=== PATIENT | male | born 1935 | race African-American/Black ===

== ENCOUNTER 2017-05-20 13:44 | Inpatient (IN) | payer MEDICARE ==
[~2017-05-20] VITALS: Ht 172.7 cm; Wt 82.1 kg
[2017-05-20] MEDS ORDERED: SODIUM CHLORIDE 0.9% 500 ML IV ONE (14:32)
[2017-05-20 15:45] LABS: BASOPHILS % 0.3 % (0.0-2.0); EOSINOPHILS % 0.9 % (0.0-5.0); LYMPHOCYTES % 23.1 % (20.0-50.0); MEAN CORPUSCULAR HEMOGLOBIN 27.8 pg (28.0-32.0); MEAN CORPUSCULAR VOLUME 83.5 fL (80.0-94.0); MEAN PLATELET VOLUME 9.4 fl (7.4-10.4); MONOCYTES % 8.3 % (2.0-8.0); NEUTROPHILS % 67.4 % (40.0-76.0); PLATELET 163 x1000/uL (130-400); RED BLOOD CELL COUNT 5.04 mill/uL (4.7-6.1); RED CELL DISTRIBUTION WIDTH 13.8 % (11.6-14.6)
[2017-05-20 15:46] LABS: CHLORIDE 99 mEq/L (98-107)
[2017-05-20 15:49] LABS: PROTHROMBIN TIME 10.6 sec (9.4-11.6)
[2017-05-20 15:57] LABS: CARBON DIOXIDE 28 mEq/L (21-32); TROPONIN I < 0.02 ng/mL (0.00-0.04)
[2017-05-20 17:59] LABS: CLARITY URINE CLEAR (CLEAR); COLOR URINE YELLOW (YELLOW); GLUCOSE URINE 3+ (NEGATIVE); KETONES URINE NEGATIVE (NEGATIVE); LEUKOCYTE ESTERASE URINE NEGATIVE (NEGATIVE); NITRITE URINE NEGATIVE (NEGATIVE); OCCULT BLOOD URINE NEGATIVE (NEGATIVE); PH URINE 5.5 (4.5-8.0); PROTEIN URINE NEGATIVE (NEGATIVE); SPECIFIC GRAVITY URINE 1.028 (1.005-1.030); UROBILINOGEN URINE 0.2 E.U./dL (0.2-1.0)
[2017-05-20] MEDS ORDERED: AMLO5TAB4 PO (19:07)
[2017-05-20] MEDS ORDERED: ATOR20TA65 PO (19:07)
[2017-05-20] MEDS ORDERED: INSU3INS6 SUBCUT (19:07)
[2017-05-20] MEDS ORDERED: VITAMIN C PO (19:07)
[2017-05-20] MEDS ORDERED: ASPI-1159 PO (19:07)
[2017-05-20] MEDS ORDERED: REPAGLINIDE PO (19:07)
[2017-05-20] MEDS ORDERED: CHOL100044 PO (19:07)
[2017-05-20] MEDS ORDERED: CYAN10009 PO (19:07)
[2017-05-20] MEDS ORDERED: MULT-1146 PO (19:07)
[2017-05-20] MEDS ORDERED: GLIP10TA10 PO (19:07)
[2017-05-20] MEDS ORDERED: CHLO25TA27 PO (19:07)
[2017-05-20] MEDS ORDERED: CHLO25TA27 GT (19:07)
[2017-05-20 20:00] VITALS: BP 111/68
[2017-05-20] MEDS ORDERED: INSULIN REGULAR (HUMULIN R) 300UNITS/3ML IV ONE (20:00)
[2017-05-20 21:00] VITALS: BP 126/78
[2017-05-20] MEDS ORDERED: DEXTROSE 50% WATER 50ML SYRINGE IV PRN (21:15)
[2017-05-20] MEDS: ATORVASTATIN CALCIUM 20MG TABLET PO SCH (22:04)
[2017-05-21] VITALS: BP 93/56
[2017-05-21 01:23] LABS: *AMPHETAMINES SCREEN URINE NEGATIVE (NEGATIVE); *BARBITURATES SCREEN URINE NEGATIVE (NEGATIVE); *BENZODIAZEPINES SCREEN URINE NEGATIVE (NEGATIVE); *COCAINE SCREEN URINE NEGATIVE (NEGATIVE); CANNABINOID URINE SCREEN NEGATIVE (NEGATIVE); METHADONE URINE SCREEN NEGATIVE (NEGATIVE); OPIATES URINE SCREEN NEGATIVE (NEGATIVE); PHENCYCLIDINE URINE SCREEN NEGATIVE (NEGATIVE)
[2017-05-21 04:00] VITALS: BP 95/65
[2017-05-21] MEDS: BLOOD SUGAR DIAGNOSTIC STRIP TEST SCH ×4 (06:01→22:01)
[2017-05-21] MEDS: GLIPIZIDE 10MG TABLET PO SCH ×2 (06:20→18:28)
[2017-05-21 07:26] LABS: INR 1.1
[2017-05-21 07:48] LABS: BASOPHILS % 0.5 % (0.0-2.0); EOSINOPHILS % 1.2 % (0.0-5.0); HEMOGLOBIN. 12.6 g/dL (14.0-18.0); LYMPHOCYTES % 31.7 % (20.0-50.0); MEAN CORPUSCULAR HEMOGLOBIN 27.4 pg (28.0-32.0); MEAN CORPUSCULAR VOLUME 82.6 fL (80.0-94.0); MEAN PLATELET VOLUME 9.7 fl (7.4-10.4); MONOCYTES % 11.2 % (2.0-8.0); NEUTROPHILS % 55.4 % (40.0-76.0); PLATELET 153 x1000/uL (130-400); RED CELL DISTRIBUTION WIDTH 13.6 % (11.6-14.6)
[2017-05-21 08:00] VITALS: BP 106/73
[2017-05-21 08:19] LABS: CARBON DIOXIDE 29 mEq/L (21-32)
[2017-05-21] MEDS: INSULIN LISPRO 100 UNITS/ML SUBCUT SCH ×4 (08:24→22:09)
[2017-05-21 08:45] LABS: CHLORIDE 102 mEq/L (98-107)
[2017-05-21] MEDS: ENOXAPARIN 40MG/0.4ML SYR SUBCUT SCH (10:17)
[2017-05-21] MEDS: CHOLECALCIFEROL (D3) 1000 UNIT TABLET PO SCH (10:18)
[2017-05-21] MEDS: ASPIRIN 81MG TABLET PO SCH (10:18)
[2017-05-21] MEDS: CHLORTHALIDONE 25MG TABLET PO SCH (10:18)
[2017-05-21] MEDS: AMLODIPINE 5MG TABLET PO SCH ×2 (10:19→21:00)
[2017-05-21 12:00] VITALS: BP 112/68
[2017-05-21] MEDS ORDERED: POTASSIUM CHLORIDE 20MEQ TABLET SR PO SCH (12:30)
[2017-05-21 16:00] VITALS: BP 106/73
[2017-05-21 20:00] VITALS: BP 95/64
[2017-05-21] MEDS: ATORVASTATIN CALCIUM 20MG TABLET PO SCH (21:59)
[2017-05-22] VITALS: BP 109/75
[2017-05-22 04:00] VITALS: BP 97/63
[2017-05-22 06:24] LABS: BASOPHILS % 0.6 % (0.0-2.0); EOSINOPHILS % 2.5 % (0.0-5.0); HEMATOCRIT. 38.6 % (42.0-52.0); HEMOGLOBIN. 12.7 g/dL (14.0-18.0); MEAN CORPUSCULAR HEMOGLOBIN 27.3 pg (28.0-32.0); MEAN CORPUSCULAR VOLUME 82.7 fL (80.0-94.0); MEAN PLATELET VOLUME 9.2 fl (7.4-10.4); MONOCYTES % 11.9 % (2.0-8.0); PLATELET 154 x1000/uL (130-400); RED BLOOD CELL COUNT 4.66 mill/uL (4.7-6.1); RED CELL DISTRIBUTION WIDTH 13.7 % (11.6-14.6)
[2017-05-22] MEDS: BLOOD SUGAR DIAGNOSTIC STRIP TEST SCH ×4 (07:19→21:00)
[2017-05-22] MEDS: GLIPIZIDE 10MG TABLET PO SCH ×2 (07:31→17:41)
[2017-05-22 08:00] VITALS: BP 109/77
[2017-05-22] MEDS: INSULIN LISPRO 100 UNITS/ML SUBCUT SCH ×4 (08:34→23:15)
[2017-05-22] MEDS: AMLODIPINE 5MG TABLET PO SCH ×2 (08:38→22:58)
[2017-05-22] MEDS: CHLORTHALIDONE 25MG TABLET PO SCH (08:39)
[2017-05-22] MEDS: CHOLECALCIFEROL (D3) 1000 UNIT TABLET PO SCH (08:41)
[2017-05-22] MEDS: ASPIRIN 81MG TABLET PO SCH (08:41)
[2017-05-22] MEDS: ENOXAPARIN 40MG/0.4ML SYR SUBCUT SCH (08:43)
[2017-05-22 12:00] VITALS: BP 111/75
[2017-05-22 16:00] VITALS: BP 104/68
[2017-05-22 20:00] VITALS: BP 109/72
[2017-05-22] MEDS: ATORVASTATIN CALCIUM 20MG TABLET PO SCH (22:57)
[2017-05-22] MEDS: INSULIN DETEMIR UD 100 UNITS/ML SYR SUBCUT SCH (23:15)
[2017-05-23] VITALS: BP 116/70
[2017-05-23 04:00] VITALS: BP 102/64
[2017-05-23] MEDS: BLOOD SUGAR DIAGNOSTIC STRIP TEST SCH ×4 (06:49→21:00)
[2017-05-23] MEDS: GLIPIZIDE 10MG TABLET PO SCH ×2 (06:49→18:08)
[2017-05-23 07:34] LABS: BASOPHILS % 0.8 % (0.0-2.0); EOSINOPHILS % 2.5 % (0.0-5.0); HEMATOCRIT. 38.8 % (42.0-52.0); HEMOGLOBIN. 12.8 g/dL (14.0-18.0); LYMPHOCYTES % 44.2 % (20.0-50.0); MEAN CORPUSCULAR HEMOGLOBIN 27.3 pg (28.0-32.0); MEAN CORPUSCULAR VOLUME 82.5 fL (80.0-94.0); MEAN PLATELET VOLUME 9.4 fl (7.4-10.4); MONOCYTES % 10.2 % (2.0-8.0); NEUTROPHILS % 42.3 % (40.0-76.0); PLATELET 160 x1000/uL (130-400); RED CELL DISTRIBUTION WIDTH 13.9 % (11.6-14.6)
[2017-05-23 08:00] VITALS: BP 109/69
[2017-05-23 08:06] LABS: PHOSPHORUS 3.3 mg/dL (2.5-4.9)
[2017-05-23] MEDS: CHLORTHALIDONE 25MG TABLET PO SCH (09:00)
[2017-05-23] MEDS: AMLODIPINE 5MG TABLET PO SCH ×2 (09:00→22:09)
[2017-05-23] MEDS: DEXAMETHASONE 4MG/ML 1ML VIAL IV SCH ×3 (09:13→18:08)
[2017-05-23] MEDS: INSULIN LISPRO 100 UNITS/ML SUBCUT SCH ×4 (09:15→22:25)
[2017-05-23] MEDS: INSULIN DETEMIR UD 100 UNITS/ML SYR SUBCUT SCH ×2 (09:19→22:26)
[2017-05-23] MEDS: ENOXAPARIN 40MG/0.4ML SYR SUBCUT SCH (09:19)
[2017-05-23] MEDS: CHOLECALCIFEROL (D3) 1000 UNIT TABLET PO SCH (09:20)
[2017-05-23] MEDS: ASPIRIN 81MG TABLET PO SCH (09:20)
[2017-05-23 12:00] VITALS: BP 116/72
[2017-05-23 16:00] VITALS: BP 120/78
[2017-05-23 20:00] VITALS: BP 125/77
[2017-05-23] MEDS: ATORVASTATIN CALCIUM 20MG TABLET PO SCH (22:09)
[2017-05-24] VITALS: BP 123/67
[2017-05-24] MEDS: DEXAMETHASONE 4MG/ML 1ML VIAL IV SCH ×4 (00:12→17:21)
[2017-05-24 04:00] VITALS: BP 113/65
[2017-05-24] MEDS: GLIPIZIDE 10MG TABLET PO SCH ×2 (06:30→17:21)
[2017-05-24] MEDS: BLOOD SUGAR DIAGNOSTIC STRIP TEST SCH ×4 (06:34→21:42)
[2017-05-24 06:38] LABS: HEMATOCRIT. 38.1 % (42.0-52.0); HEMOGLOBIN. 12.7 g/dL (14.0-18.0); LYMPHOCYTES % 12.8 % (20.0-50.0); MEAN CORPUSCULAR HEMOGLOBIN 27.4 pg (28.0-32.0); MEAN CORPUSCULAR VOLUME 81.9 fL (80.0-94.0); MEAN PLATELET VOLUME 9.4 fl (7.4-10.4); MONOCYTES % 2.8 % (2.0-8.0); NEUTROPHILS % 84.4 % (40.0-76.0); PLATELET 181 x1000/uL (130-400); RED BLOOD CELL COUNT 4.64 mill/uL (4.7-6.1); RED CELL DISTRIBUTION WIDTH 13.6 % (11.6-14.6)
[2017-05-24 07:48] VITALS: BP 111/68
[2017-05-24 08:19] LABS: CARBON DIOXIDE 23 mEq/L (21-32); CHLORIDE 105 mEq/L (98-107); PHOSPHORUS 3.7 mg/dL (2.5-4.9)
[2017-05-24] MEDS: CHOLECALCIFEROL (D3) 1000 UNIT TABLET PO SCH (08:44)
[2017-05-24] MEDS: ASPIRIN 81MG TABLET PO SCH (08:44)
[2017-05-24] MEDS: INSULIN LISPRO 100 UNITS/ML SUBCUT SCH ×4 (08:46→22:20)
[2017-05-24] MEDS: ENOXAPARIN 40MG/0.4ML SYR SUBCUT SCH (08:46)
[2017-05-24] MEDS: CHLORTHALIDONE 25MG TABLET PO SCH (08:47)
[2017-05-24] MEDS: AMLODIPINE 5MG TABLET PO SCH ×2 (08:48→21:33)
[2017-05-24] MEDS: INSULIN DETEMIR UD 100 UNITS/ML SYR SUBCUT SCH ×2 (11:09→21:41)
[2017-05-24] MEDS ORDERED: DEXTROSE 50% WATER 50ML SYRINGE IV PRN (11:30)
[2017-05-24 12:00] VITALS: BP 124/77
[2017-05-24] MEDS ORDERED: BLOOD SUGAR DIAGNOSTIC STRIP TEST SCH (12:20)
[2017-05-24 16:00] VITALS: BP 119/72
[2017-05-24] MEDS: ATORVASTATIN CALCIUM 20MG TABLET PO SCH (21:33)
[2017-05-25] MEDS: DEXAMETHASONE 4MG/ML 1ML VIAL IV SCH ×2 (00:46→07:20)
[2017-05-25 07:09] VITALS: BP 132/82
[2017-05-25] MEDS: BLOOD SUGAR DIAGNOSTIC STRIP TEST SCH ×2 (07:21→12:53)
[2017-05-25] MEDS: GLIPIZIDE 10MG TABLET PO SCH (07:24)
[2017-05-25 07:41] LABS: BASOPHILS % 0.1 % (0.0-2.0); HEMATOCRIT. 40.4 % (42.0-52.0); HEMOGLOBIN. 13.4 g/dL (14.0-18.0); MEAN CORPUSCULAR HEMOGLOBIN 27.4 pg (28.0-32.0); MEAN CORPUSCULAR VOLUME 82.4 fL (80.0-94.0); MEAN PLATELET VOLUME 9.5 fl (7.4-10.4); MONOCYTES % 3.3 % (2.0-8.0); NEUTROPHILS % 87.6 % (40.0-76.0); PLATELET 183 x1000/uL (130-400); RED BLOOD CELL COUNT 4.91 mill/uL (4.7-6.1); RED CELL DISTRIBUTION WIDTH 13.7 % (11.6-14.6)
[2017-05-25 08:19] LABS: CARBON DIOXIDE 25 mEq/L (21-32); CHLORIDE 104 mEq/L (98-107)
[2017-05-25] MEDS ORDERED: DEXAMETHASONE 4MG TABLET PO SCH (09:00)
[2017-05-25] MEDS ORDERED: DEXAMETHASONE 4MG/ML 1ML VIAL PO SCH (09:00)
[2017-05-25] MEDS: CHLORTHALIDONE 25MG TABLET PO SCH (09:08)
[2017-05-25] MEDS: ASPIRIN 81MG TABLET PO SCH (09:08)
[2017-05-25] MEDS: AMLODIPINE 5MG TABLET PO SCH (09:09)
[2017-05-25] MEDS: ENOXAPARIN 40MG/0.4ML SYR SUBCUT SCH (09:09)
[2017-05-25] MEDS: CHOLECALCIFEROL (D3) 1000 UNIT TABLET PO SCH (09:09)
[2017-05-25] MEDS: INSULIN LISPRO 100 UNITS/ML SUBCUT SCH ×2 (09:15→13:08)
[2017-05-25 11:25] VITALS: BP 129/70
[2017-05-25] MEDS: INSULIN DETEMIR UD 100 UNITS/ML SYR SUBCUT SCH (11:33)
[2017-05-25 13:52] VITALS: BP 129/70
== END 2017-05-25 15:10 | disposition home or self-care (01) | DRG 552 ==
LOC: ER 15:37 → 6EST 18:54 → EDBEDREQ 19:00 → ENRESERV 19:25 → CANRESERV 19:25 → ENRESERV 19:29
PROVIDERS: ADMIT Internal Medicine; ATTEND Internal Medicine
DX: M50.01 Cervical disc disorder with myelopathy, high cervical region (principal); E46 Unspecified protein-calorie malnutrition; E11.22 Type 2 diabetes mellitus with diabetic chronic kidney disease; M47.12 Other spondylosis with myelopathy, cervical region; M51.04 Intervertebral disc disorders with myelopathy, thoracic region; E11.65 Type 2 diabetes mellitus with hyperglycemia; M48.02 Spinal stenosis, cervical region; E87.1 Hypo-osmolality and hyponatremia; M51.06 Intervertebral disc disorders with myelopathy, lumbar region; G83.4 Cauda equina syndrome; R27.0 Ataxia, unspecified; M48.00 Spinal stenosis, site unspecified; Z60.2 Problems related to living alone; T38.0X5A Adverse effect of glucocorticoids and synthetic analogues, initial encounter; E78.5 Hyperlipidemia, unspecified; E78.00 Pure hypercholesterolemia, unspecified; I12.9 Hypertensive chronic kidney disease with stage 1 through stage 4 chronic kidney disease, or unspecified chronic kidney disease; N18.3 Chronic kidney disease, stage 3 (moderate); Z85.46 Personal history of malignant neoplasm of prostate; Z86.73 Personal history of transient ischemic attack (TIA), and cerebral infarction without residual deficits; Z79.82 Long term (current) use of aspirin; Z79.84 Long term (current) use of oral hypoglycemic drugs; Z79.899 Other long term (current) drug therapy; Z82.49 Family history of ischemic heart disease and other diseases of the circulatory system; Y92.89 Other specified places as the place of occurrence of the external cause; Z68.27 Body mass index [BMI] 27.0-27.9, adult
CPT/HCPCS: 36415; 70450; 70551; 71010; 72131; 72141; 72146; 72148; 76770; 80048; 80053; 80305; 81001; 82962; 83735; 84100; 84484; 85025; 85610; 86141; 87086; 93005; 93970; 96361; 96374; 97112; 97116; 97162; 97166; 97530; 97535; 99285; J1100; J1650; J1815; J7030; J7040; J7050; J8540

== ENCOUNTER 2017-12-29 12:17 | Inpatient (IN) | payer MEDICARE ==
[~2017-12-29] VITALS: Ht 188 cm; Wt 79.4 kg
[~2017-12-29 12:17] MED LIST: AMLO5TAB4 PO; ASPI-1159 PO; ATOR20TA65 PO; CHLO25TA27 GT; CHLO25TA27 PO; CHOL100044 PO; CYAN10009 PO; GLIP10TA10 PO; INSU3INS6 SUBCUT; MULT-1146 PO; REPAGLINIDE PO; VITAMIN C PO
[2017-12-29 17:39] LABS: BASOPHILS % 0.4 % (0.0-2.0); EOSINOPHILS % 1.2 % (0.0-5.0); HEMATOCRIT. 43.8 % (42.0-52.0); HEMOGLOBIN. 14.6 g/dL (14.0-18.0); LYMPHOCYTES % 30.5 % (20.0-50.0); MEAN CORPUSCULAR HEMOGLOBIN 27.9 pg (28.0-32.0); MEAN CORPUSCULAR VOLUME 83.8 fL (80.0-94.0); MEAN PLATELET VOLUME 8.7 fl (7.4-10.4); MONOCYTES % 7.5 % (2.0-8.0); NEUTROPHILS % 60.4 % (40.0-76.0); PLATELET 188 x1000/uL (130-400); RED BLOOD CELL COUNT 5.23 mill/uL (4.7-6.1); RED CELL DISTRIBUTION WIDTH 13.6 % (11.6-14.6)
[2017-12-29 17:43] LABS: CHLORIDE 100 mEq/L (98-107)
[2017-12-29 17:47] LABS: D-DIMER 0.98 mg/L FEU (<0.50); ETHANOL BLOOD < 10 mg/dL; PROTHROMBIN TIME 10.7 sec (9.4-11.6)
[2017-12-29 17:51] LABS: CREATINE KINASE 144 IU/L (39-308)
[2017-12-29 18:42] LABS: CLARITY URINE CLEAR (CLEAR); COLOR URINE YELLOW (YELLOW); KETONES URINE NEGATIVE (NEGATIVE); LEUKOCYTE ESTERASE URINE NEGATIVE (NEGATIVE); NITRITE URINE NEGATIVE (NEGATIVE); OCCULT BLOOD URINE NEGATIVE (NEGATIVE); PROTEIN URINE NEGATIVE (NEGATIVE); SPECIFIC GRAVITY URINE 1.028 (1.005-1.030); UROBILINOGEN URINE 0.2 E.U./dL (0.2-1.0)
[2017-12-29 19:01] LABS: *AMPHETAMINES SCREEN URINE NEGATIVE (NEGATIVE); *BARBITURATES SCREEN URINE NEGATIVE (NEGATIVE); *BENZODIAZEPINES SCREEN URINE NEGATIVE (NEGATIVE); *COCAINE SCREEN URINE NEGATIVE (NEGATIVE)
[2017-12-29 19:02] LABS: CANNABINOID URINE SCREEN NEGATIVE (NEGATIVE); METHADONE URINE SCREEN NEGATIVE (NEGATIVE); OPIATES URINE SCREEN NEGATIVE (NEGATIVE); PHENCYCLIDINE URINE SCREEN NEGATIVE (NEGATIVE)
[2017-12-29] MEDS ORDERED: HYDROCODONE/ACETAMINOPHEN 5/325MG TABLET PO ONE (19:45)
[2017-12-29] MEDS ORDERED: NA PHOS,M-B/NA PHOS,DI-BA ENEMA 118ML PR PRN (22:15)
[2017-12-29] MEDS ORDERED: HYDROCODONE/ACETAMINOPHEN 5/325MG TABLET PO PRN (22:15)
[2017-12-29] MEDS ORDERED: LORAZEPAM 2MG/ML CPJ IV PRN (22:15)
[2017-12-29] MEDS ORDERED: GUAIFENESIN 200MG/10ML SUGAR FREE UDC PO PRN (22:15)
[2017-12-29] MEDS ORDERED: DOCUSATE SODIUM 100MG CAPSULE PO PRN (22:15)
[2017-12-29] MEDS ORDERED: HYDROMORPHONE HCL/PF 2MG/ML CPJ IV PRN (22:15)
[2017-12-29] MEDS ORDERED: DIPHENHYDRAMINE 50MG/ML VIAL IV PRN (22:15)
[2017-12-29] MEDS ORDERED: CLONIDINE 0.1MG TABLET PO PRN (22:15)
[2017-12-29] MEDS ORDERED: ACETAMINOPHEN 325MG TABLET PO PRN (22:15)
[2017-12-29] MEDS ORDERED: IPRATROPIUM/ALBUTEROL 0.5-3(2.5)MG/3ML NEB INH PRN (22:15)
[2017-12-29] MEDS ORDERED: MAGNESIUM/ALUMINUM HYDROXIDE/SIMETHICONE 30ML UDC PO PRN (22:15)
[2017-12-29] MEDS ORDERED: ONDANSETRON HCL 4MG/2ML VIAL IV PRN (22:15)
[2017-12-29 22:46] VITALS: BP 150/86
[2017-12-29 23:22] VITALS: BP 150/86
[2017-12-29 23:58] LABS: CHLORIDE 104 mEq/L (98-107)
[2017-12-30] VITALS: BP 119/76
[2017-12-30] MEDS ORDERED: DEXTROSE 50% WATER 50ML SYRINGE IV PRN (01:00)
[2017-12-30] MEDS: SODIUM CHLORIDE 0.45% 1,000 ML IV SCH ×2 (03:48→18:11)
[2017-12-30 04:00] VITALS: BP 115/72
[2017-12-30] MEDS: BLOOD SUGAR DIAGNOSTIC STRIP TEST SCH ×4 (07:20→21:16)
[2017-12-30 07:22] LABS: BASOPHILS % 0.8 % (0.0-2.0); EOSINOPHILS % 2.8 % (0.0-5.0); HEMATOCRIT. 38.1 % (42.0-52.0); HEMOGLOBIN. 12.9 g/dL (14.0-18.0); LYMPHOCYTES % 36.3 % (20.0-50.0); MEAN CORPUSCULAR HEMOGLOBIN 27.9 pg (28.0-32.0); MEAN CORPUSCULAR VOLUME 82.7 fL (80.0-94.0); MEAN PLATELET VOLUME 8.6 fl (7.4-10.4); MONOCYTES % 11.5 % (2.0-8.0); NEUTROPHILS % 48.6 % (40.0-76.0); PLATELET 165 x1000/uL (130-400); RED BLOOD CELL COUNT 4.61 mill/uL (4.7-6.1); RED CELL DISTRIBUTION WIDTH 13.4 % (11.6-14.6)
[2017-12-30 07:38] LABS: CHLORIDE 108 mEq/L (98-107)
[2017-12-30 07:50] LABS: LDL CHOLESTEROL 73 mg/dL (5-100)
[2017-12-30 07:51] VITALS: BP 121/81
[2017-12-30 07:51] LABS: T4 FREE 0.95 ng/dL (0.76-1.46)
[2017-12-30 07:52] LABS: HDL CHOLESTEROL 34 mg/dL (40-59)
[2017-12-30] MEDS: CYANOCOBALAMIN 1000MCG TABLET PO SCH (08:46)
[2017-12-30] MEDS: ASPIRIN 81MG EC TABLET PO SCH (08:46)
[2017-12-30] MEDS: MULTIVITAMINS,THER W-MINERALS TABLET PO SCH (08:46)
[2017-12-30] MEDS: REPAGLINIDE 1MG TABLET PO SCH ×3 (08:46→18:24)
[2017-12-30] MEDS: GLIPIZIDE 10MG TABLET PO SCH ×2 (08:47→18:24)
[2017-12-30] MEDS: AMLODIPINE 5MG TABLET PO SCH ×2 (08:49→21:23)
[2017-12-30] MEDS: ENOXAPARIN 40MG/0.4ML SYR SUBCUT SCH (08:50)
[2017-12-30] MEDS: INSULIN LISPRO 100 UNITS/ML SUBCUT SCH ×4 (08:58→21:25)
[2017-12-30] MEDS: CHOLECALCIFEROL (D3) 1000 UNIT TABLET PO SCH (09:15)
[2017-12-30] MEDS: CHLORTHALIDONE 25MG TABLET PO SCH (09:15)
[2017-12-30] MEDS: ASCORBIC ACID 500 MG TABLET PO SCH (09:16)
[2017-12-30 11:55] VITALS: BP 105/69
[2017-12-30 15:54] VITALS: BP 114/67
[2017-12-30 16:15] LABS: CREATINE KINASE 106 IU/L (39-308)
[2017-12-30 16:16] LABS: CREATINE KINASE MB FRACTION 1.6 ng/mL (0.5-3.6)
[2017-12-30 20:00] VITALS: BP 122/77
[2017-12-30] MEDS ORDERED: ATORVASTATIN CALCIUM 10MG TABLET PO SCH (21:00)
[2017-12-30] MEDS ORDERED: INSULIN GLARGINE UD 100 UNITS/ML SYR SUBCUT SCH (22:00)
[2017-12-30 23:14] LABS: CREATINE KINASE MB FRACTION 1.7 ng/mL (0.5-3.6)
[2017-12-31] VITALS: BP_SYST 103; BP_SYST 91; BP_SYST 98; BP_DIAS 53; BP_DIAS 57; BP_DIAS 67
[2017-12-31 04:00] VITALS: BP 136/76
[2017-12-31] MEDS: BLOOD SUGAR DIAGNOSTIC STRIP TEST SCH ×3 (06:27→13:14)
[2017-12-31] MEDS: INSULIN LISPRO 100 UNITS/ML SUBCUT SCH ×2 (07:50→12:50)
[2017-12-31 07:58] LABS: CREATINE KINASE MB FRACTION 1.7 ng/mL (0.5-3.6)
[2017-12-31] MEDS: CHLORTHALIDONE 25MG TABLET PO SCH (09:03)
[2017-12-31] MEDS: MULTIVITAMINS,THER W-MINERALS TABLET PO SCH (09:04)
[2017-12-31] MEDS: REPAGLINIDE 1MG TABLET PO SCH ×2 (09:04→12:20)
[2017-12-31] MEDS: CYANOCOBALAMIN 1000MCG TABLET PO SCH (09:04)
[2017-12-31] MEDS: AMLODIPINE 5MG TABLET PO SCH (09:04)
[2017-12-31] MEDS: GLIPIZIDE 10MG TABLET PO SCH (09:05)
[2017-12-31] MEDS: ASCORBIC ACID 500 MG TABLET PO SCH (09:05)
[2017-12-31] MEDS: ASPIRIN 81MG EC TABLET PO SCH (09:05)
[2017-12-31] MEDS: CHOLECALCIFEROL (D3) 1000 UNIT TABLET PO SCH (09:05)
[2017-12-31] MEDS: ENOXAPARIN 40MG/0.4ML SYR SUBCUT SCH (09:10)
[2017-12-31 11:01] VITALS: BP 125/74
== END 2017-12-31 14:10 | disposition home or self-care (01) | DRG 682 ==
LOC: ER 14:10 → 6WST 19:48 → EDBEDREQ 19:49 → EDBEDREQTM 19:49 → ENRESERV 20:50
PROVIDERS: ADMIT Internal Medicine; ATTEND Internal Medicine
DX: N17.0 Acute kidney failure with tubular necrosis (principal); G93.41 Metabolic encephalopathy; E11.65 Type 2 diabetes mellitus with hyperglycemia; E86.0 Dehydration; E78.00 Pure hypercholesterolemia, unspecified; E78.5 Hyperlipidemia, unspecified; W19.XXXA Unspecified fall, initial encounter; I25.10 Atherosclerotic heart disease of native coronary artery without angina pectoris; I10 Essential (primary) hypertension; M48.00 Spinal stenosis, site unspecified; Z79.82 Long term (current) use of aspirin; Z79.84 Long term (current) use of oral hypoglycemic drugs; Z79.899 Other long term (current) drug therapy; Z85.46 Personal history of malignant neoplasm of prostate; Z79.4 Long term (current) use of insulin
CPT/HCPCS: 36415; 70450; 71045; 80048; 80053; 80061; 80305; 81003; 82550; 82553; 82962; 83036; 83880; 84153; 84439; 84443; 84484; 85025; 85379; 85610; 93005; 93306; 93970; 99285; G0482; J1650; J1815